=== PATIENT | female | born 1965 | race Hispanic/Latino ===

== ENCOUNTER 2024-05-02 05:23 | Observation (INO) | payer SELFPAY ==
[~2024-05-02] VITALS: Ht 152.4 cm; Wt 49.9 kg
[2024-05-02] VITALS (8 sets, daily range): BP systolic 109–135; BP diastolic 55–67; PULSE 80–94; RESP 15–20; TEMP 98.2–98.9; O2SAT 97–100
[2024-05-02 06:08] LABS: BASOPHILS % 0.3 % (0.0-1.0); EOSINOPHILS # (AUTO) 0.1 (0.0-0.4); EOSINOPHILS % 0.9 % (0.0-6.0); HEMATOCRIT 41.7 % (34.2-44.1); HEMOGLOBIN 13.3 g/dL (12.0-16.0); LYMPHOCYTES # (AUTO) 3.2 (1.0-3.2); LYMPHOCYTES % 29.4 % (18.0-39.1); MEAN CORPUSCULAR HEMOGLOBIN 25.3 pg (28-32); MEAN CORPUSCULAR HGB CONC 31.9 g/dL (31-35); MEAN CORPUSCULAR VOLUME 79.3 fL (81-99); MONOCYTES # (AUTO) 0.5 (0.2-0.8); NEUTROPHILS % 64.2 % (38.7-80.0); PLATELET COUNT 206 x10e3/uL (140-360); RED BLOOD COUNT 5.26 x10e6/uL (3.6-5.1); WHITE BLOOD COUNT 10.89 x10e3/uL (4.8-10.8)
[2024-05-02 06:18] LABS: INR 0.87; PARTIAL THROMBOPLASTIN TIME 24.2 seconds (23.8-35.5); PROTHROMBIN TIME 12.4 seconds (11.9-14.5)
[2024-05-02 06:25] LABS: ALBUMIN 4.1 g/dL (3.5-5.0); ALBUMIN/GLOBULIN RATIO 1.1 (0.8-2.0); ANION GAP 15.2 mmol/L (8-16); BILIRUBIN,TOTAL 0.3 mg/dL (0.2-1.2); CALCIUM 9.7 mg/dL (8.4-10.2); CREATININE, SERUM 0.8 mg/dL (0.57-1.11); TOTAL PROTEIN 7.8 g/dL (6.5-8.1)
[2024-05-02 06:26] LABS: POTASSIUM 3.2 mmol/L (3.5-5.1)
[2024-05-02] MEDS: SODIUM CHLORIDE 0.9% 1000ML 1,000 ML IV ONE (06:37)
[2024-05-02] MEDS ORDERED: SODIUM CHLORIDE 0.9% 1000ML 1,000 ML IV SCH (07:45)
[2024-05-02 11:17] LABS: FERRITIN 70.78 ng/mL (4.63-204.00)
[2024-05-02] MEDS: SODIUM CHLORIDE 0.9% 1000ML 1,000 ML IV SCH (12:02)
[2024-05-02] MEDS: TETANUS/DIPHTHERIA TOX ADULT 0.5 ML SYR IM ONE (12:03)
[2024-05-02 12:54] LABS: CREATINE KINASE 73 IU/L (29-168)
[2024-05-02 13:27] LABS: TROPONIN I < 0.001 ng/mL (0-0.300)
[2024-05-02 19:15] LABS: CREATINE KINASE 68 IU/L (29-168)
[2024-05-02 19:27] LABS: TROPONIN I < 0.001 ng/mL (0-0.300)
[2024-05-03] VITALS: BP 108/45; PULSE 72; RESP 18; TEMP 97.7
[2024-05-03 04:59] VITALS: BP 108/57; PULSE 68; RESP 20; TEMP 97.8; O2SAT 100
[2024-05-03 05:01] LABS: BASOPHILS % 0.4 % (0.0-1.0); EOSINOPHILS # (AUTO) 0.1 (0.0-0.4); HEMOGLOBIN 10.8 g/dL (12.0-16.0); LYMPHOCYTES # (AUTO) 2.1 (1.0-3.2); LYMPHOCYTES % 41.4 % (18.0-39.1); MEAN CORPUSCULAR HEMOGLOBIN 25.8 pg (28-32); MEAN CORPUSCULAR HGB CONC 31.8 g/dL (31-35); MEAN CORPUSCULAR VOLUME 81.3 fL (81-99); MONOCYTES # (AUTO) 0.5 (0.2-0.8); MONOCYTES % 9.6 % (4.4-11.3); NEUTROPHILS # (AUTO) 2.3 (2.1-6.9); NEUTROPHILS % 46.6 % (38.7-80.0); PLATELET COUNT 160 x10e3/uL (140-360); RED BLOOD COUNT 4.18 x10e6/uL (3.6-5.1); RED CELL DISTRIBUTION WIDTH 13.1 % (11.7-14.4)
[2024-05-03 05:35] LABS: ALBUMIN 3.1 g/dL (3.5-5.0); ALBUMIN/GLOBULIN RATIO 1.2 (0.8-2.0); ANION GAP 11.7 mmol/L (8-16); BILIRUBIN,TOTAL 0.5 mg/dL (0.2-1.2); CREATININE, SERUM 0.62 mg/dL (0.57-1.11); POTASSIUM 3.7 mmol/L (3.5-5.1); TOTAL PROTEIN 5.6 g/dL (6.5-8.1)
[2024-05-03 05:36] LABS: CREATINE KINASE 112 IU/L (29-168)
[2024-05-03 05:36] LABS: CHOL/HDL RATIO 2.4 (3.0-3.6)
[2024-05-03 05:46] LABS: TROPONIN I < 0.001 ng/mL (0-0.300)
[2024-05-03 08:35] VITALS: BP 114/54; PULSE 76; RESP 20; TEMP 98.6; O2SAT 100
[2024-05-03 08:37] VITALS: BP 114/54; PULSE 76; RESP 20; TEMP 98.6; O2SAT 100
[2024-05-03 12:00] VITALS: BP 115/61; PULSE 71; RESP 20; TEMP 98.3; O2SAT 100
[2024-05-03] MEDS ORDERED: FEROSUL325 MG PO (12:43)
== END 2024-05-03 14:56 | disposition home or self-care (01) ==
LOC: ER 05:43 → ERHOLD 07:44 → MED/SURG 10:27
PROVIDERS: ADMIT Family Medicine Adult Medicine; ATTEND Family Medicine Adult Medicine
DX: R55 Syncope and collapse (principal); I95.9 Hypotension, unspecified; R00.1 Bradycardia, unspecified; S01.81XA Laceration without foreign body of other part of head, initial encounter; D50.9 Iron deficiency anemia, unspecified; M48.02 Spinal stenosis, cervical region; W18.39XA Other fall on same level, initial encounter; Y92.012 Bathroom of single-family (private) house as the place of occurrence of the external cause
CPT/HCPCS: 12011; 36415 ×2; 70450; 70490; 71045; 72125; 80053 ×2; 80061; 82550 ×2; 82607; 82728; 82746; 83540; 84443; 84466; 84484 ×2; 85025 ×2; 85045; 85610; 85730; 93005; 93306; 93880; 99285; G0378 ×2; J7030 ×2